=== PATIENT | male | born 1960 | race Caucasian/White ===

== ENCOUNTER 2020-02-19 11:58 | Emergency (ER) | payer MEDICAID, SELFPAY ==
[2020-02-19 12:21] VITALS: BP 123/78; PULSE 86; RESP 16; TEMP 37.7; O2SAT 99
--- NOTE | 2020-02-19 12:26 | ED.SKABFB ---
HPI - Skin/Abscess/Foreign Bdy General Chief complaint: Skin/Abscess/Foreign Body Stated complaint: lump on side of neck Time Seen by Provider: 02/19/20 12:26 Source: patient and RN notes reviewed Mode of arrival: ambulatory Limitations: other (Deaf) History of Present Illness HPI narrative: 59-year-old male presents with concern for a lump on the left side of his throat. Reports is been there for 4 days, is tender. Patient is a history of smoking. 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 Patient is a poor historian complaint: other (throat mass) Related Data Home Medications Medication Instructions Recorded Confirmed No Home Medications 02/19/20 02/19/20 Allergies Allergy/AdvReac Type Severity Reaction Status Date / Time No Known Allergies Allergy Verified 02/19/20 12:33 Review of Systems Review of Systems: Narrative: CONSTITUTIONAL: Denies malaise, chills, sweats, or fever. ENT: Denies rhinorrhea, congestion, sinus pain, otalgia. Reports sore throat, lump on the left side of his throat RESPIRATORY: Denies dyspnea. SKIN: Denies redness. Reports tenderness in the left side of his neck MUSCULOSKELETAL: Denies myalgia. NEUROLOGIC: Denies numbness, weakness, or headache. All systems reviewed & are unremarkable except as noted in HPI and below PMFSH Social History Social History Gender identity (if verbalized by the patient): Female Comments At time of signature, agree with nursing past medical, surgical, social and family history. There is no relevant family history pertinent to the presenting complaint Exam Narrative: Exam Narrative: GENERAL: Well-appearing, well-nourished, and in no acute distress. HEAD: Normocephalic, atraumatic. EYES: PERRLA, conjunctivae clear ENT: Nares clear. Mucous membranes moist. TM pearly rosa with sharp light reflex bilaterally; no tragal tenderness. Oropharynx without erythema or lesions. Left-sided swelling noted, tonsils without exudate. NECK: Supple. CHEST: No respiratory distress. Speaks in full sentences. HEART: Regular rate and rhythm. SKIN: Warm, dry, no rash. NEURO: Alert and oriented x3. PSYCH: Normal mood and affect Course Course Emergency Course: Patient is aware of, understands and agrees to reasons to be seen in the emergency department. Anticipatory guidance given. Patient agrees to proceed directly to the emergency department. Portions of this record may have been created with voice recognition software Vital Signs Vital signs: Vital Signs Temperature 99.8 F H 02/19/20 12:21 Pulse Rate 86 02/19/20 12:21 Respiratory Rate 16 02/19/20 12:21 Blood Pressure 123/78 02/19/20 12:21 Pulse Oximetry 99 02/19/20 12:21 Temperature 99.8 F H 02/19/20 12:21 Pulse Rate 86 02/19/20 12:21 Respiratory Rate 16 02/19/20 12:21 Blood Pressure 123/78 02/19/20 12:21 Pulse Oximetry 99 02/19/20 12:21 Reviewed. Transfer Transfered to: [facility] Transportation: Other (private vehicle) Transfer rationale: Throat mass Accepting physician: Dr Luciano Transfer comments: Patient stable for transfer via private vehicle MDM - Skin/Abscess/Foreign Bdy MDM Narrative Medical decision making narrative: Exam findings warrant further evaluation emergency department; patient is non-toxic appearing and is in no distress. Patient is appropriate for transfer via private vehicle Critical Care Time Critical Care Time Critical Care Time: No Discharge Plan Discharge Clinical Impression: Mass of throat Patient Disposition: Acute Care Hospital Condition: Stable Prescriptions: No Action No Home Medications RF: 0 Follow-up/Referrals: [facility] [Primary Care Provider] - Time of Disposition: 12:54
== END 2020-02-19 12:56 | disposition short-term general hospital (02) ==
PROVIDERS: Emergency Provider Nurse Practitioner
DX: R22.1 Localized swelling, mass and lump, neck (principal); H91.93 Unspecified hearing loss, bilateral
CPT/HCPCS: 99202; G0463